=== PATIENT | male | born 1955 | race Hispanic/Latino ===

== ENCOUNTER 2018-01-20 07:28 | Observation (INO) | payer BC ==
[2018-01-20] MEDS ORDERED: Propofol 10 mg/ml Inj (20 ML) ONE (08:51)
[2018-01-20] MEDS ORDERED: Midazolam 2 MG/2 ML VIAL ONE (08:51)
--- NOTE | 2018-01-20 11:08 | CARD ---
APPROVED REPORT Date of service: 01/20/2018 EKG Measurement Heart [id number] <Conclusion> Atrial fibrillation LVH by voltage Q in lll
[2018-01-20] MEDS: Sodium Chloride 0.9% 1,000 ML IV SCH (12:05)
--- NOTE | 2018-01-20 12:38 | CP.PCM.HP ---
<Courtney Belcher - Last Filed: 01/21/18 12:08> History of Present Illness - History of Present Illness History of Present Illness: Amission history and physicl for Dr. Sol Gilbert CC: afib during EGD Patient is a 63 yr old male with PMH HTN, HLD, Chronic back pain, hypothyroidism, gout and diet controlled diabetes and esophageal cancer (2006) who presented to [facility] for routine screening EGD and was found to be in atrial fibrillation without RVR during the procedure. He converted back to normal sinus in PACU during recovery and was admitted for further observation. He admits to one similar episode 2 years ago for which he was evaluated but not placed on any anticoagulation. He otherwise denies MADRID, CP, SOB, dizziness, vision changes, f/c, n/v, abdominal pain and extremity pain or weakness. PMH:HTN, HLD, hypothyroidism, esophageal cancer (2006), gout, diet controlled DM PSH: lumbar disc fusion Social: former smoker 35 py, no ilicit drugs social ETOH Allergies: nkda MED: see med rec PMD: mutterpearl Onc: Veto at [facility] Present on Admission - Present on Admission Any Indicators Present on Admission: No Review of Systems - Review of Systems All systems: reviewed and no additional remarkable complaints except (as per HPI) Past Patient History - Tetanus Immunizations Tetanus Immunization: Unknown - Past Social History Smoking Status: Former Smoker - CARDIAC Hx Pacemaker: No - NEUROLOGICAL Hx Paralysis: No - HEMATOLOGICAL/ONCOLOGICAL Hx Blood Transfusions: No - INTEGUMENTARY Hx Dermatological Problems: No - MUSCULOSKELETAL/RHEUMATOLOGICAL Hx Musculoskeletal Disorders: Yes - GENITOURINARY/GYNECOLOGICAL Hx Genitourinary Disorders: No - PSYCHIATRIC Hx Emotional Abuse: No Hx Physical Abuse: No Hx Substance Use: No - SURGICAL HISTORY Hx Surgeries: Yes - ANESTHESIA Hx Anesthesia Reactions: No Hx Malignant Hyperthermia: No Meds Allergies/Adverse Reactions: Allergies Allergy/AdvReac Type Severity Reaction Status Date / Time No Known Allergies Allergy Verified 07/28/12 10:12 Physical Exam - Constitutional Appears: Well, Non-toxic, No Acute Distress - Head Exam Head Exam: ATRAUMATIC, NORMOCEPHALIC - Eye Exam Eye Exam: EOMI - ENT Exam ENT Exam: Mucous Membranes Moist - Respiratory Exam Respiratory Exam: NORMAL BREATHING PATTERN Additional comments: coarse breath sounds bilaterally - Cardiovascular Exam Cardiovascular Exam: REGULAR RHYTHM, RRR. absent: Bradycardia, Tachycardia, Irregular Rhythm - GI/Abdominal Exam GI & Abdominal Exam: Soft. absent: Distended, Firm, Guarding, Rebound, Rigid, Tenderness - Extremities Exam Extremities exam: Positive for: normal capillary refill, pedal pulses present. Negative for: calf tenderness, pedal edema, tenderness - Back Exam Back exam: absent: CVA tenderness (L), CVA tenderness (R) - Neurological Exam Neurological exam: Alert, Oriented x3 - Psychiatric Exam Psychiatric exam: Normal Affect, Normal Mood - Skin Skin Exam: Dry, Intact, Normal Color, Warm Results - Vital Signs Recent Vital Signs: Last Vital Signs Temp 98.2 F 01/20/18 10:40 Pulse 84 01/20/18 10:40 Resp 12 01/20/18 10:40 BP 161/84 H 01/20/18 10:40 Pulse Ox 98 01/20/18 10:40 - Labs Result Diagrams: 01/21/18 05:25 01/21/18 05:25 Assessment & Plan - Assessment and Plan (Free Text) Assessment: 63 yr old male with short run of atrial fibrillation during EGD who self converted to normal sinus rythym in PACU Plan: Atrial Fibrillation without RVR * cardiology consulted, recs appreciated * patient now in normal sinus on tele * denies ever having chest pains or SOB * repeat EKG ordered * stat troponins x 3 ordered * TSH and free T4 ordered * ASA 81 mg daily * urgent ECHO * repeat labs in AM Coarse breath sounds/hx of smoking: * Duonebs PRN * recent CXR normal HTN: * home amlodipine and losartan restarted, holding parameters in place * monitor vital signs HLD: * lipitor started at 40mg daily, reviewed with pharmacist for dose conversion from crestor Hypothyroidism: * continue home synthroid * TSH and T4 ordered Gout * home allopurinol and Vitamin C restarted Diet controlled DM * hbA1C 6.4 * will continue to monitor blood glucose levels Prophylaxis: SCDs, heparin and protonix Patient seen and discussed with attending Dr. Vladimir Belcher, PGY 1 - Date & Time Date: 01/20/18 Time: 11:15 <Sol Gilbert R - Last Filed: 01/21/18 16:14> Results - Vital Signs Recent Vital Signs: Last Vital Signs Temp 98.8 F 01/21/18 13:54 Pulse 77 01/21/18 14:00 Resp 18 01/21/18 13:54 BP 148/93 H 01/21/18 13:54 Pulse Ox 98 01/20/18 10:40 - Labs Result Diagrams: 01/21/18 05:25 01/21/18 05:25 Labs: Laboratory Results - last 24 hr 01/20/18 01/21/18 01/21/18 18:01 00:30 05:25 WBC 8.8 RBC 4.44 Hgb 13.2 L Hct 40.4 L MCV 91.0 MCH 29.7 MCHC 32.7 RDW 15.8 H Plt Count 234 MPV 11.9 H Gran % 75.8 H Lymph % (Auto) 16.6 L [place] % (Auto) 6.1 H Eos % (Auto) 1.3 L Baso % (Auto) 0.2 Gran # 6.67 H Lymph # (Auto) 1.5 [place] # (Auto) 0.5 Eos # (Auto) 0.1 Baso # (Auto) 0.02 Sodium Potassium Chloride Carbon Dioxide Anion Gap BUN Creatinine Est GFR ( Amer) Est GFR (Non-Af Amer) Random Glucose Calcium Phosphorus Magnesium Total Bilirubin AST ALT Alkaline Phosphatase Troponin I < 0.01 < 0.01 Total Protein Albumin Globulin Albumin/Globulin Ratio 01/21/18 05:25 WBC RBC Hgb Hct MCV MCH MCHC RDW Plt Count MPV Gran % Lymph % (Auto) [place] % (Auto) Eos % (Auto) Baso % (Auto) Gran # Lymph # (Auto) [place] # (Auto) Eos # (Auto) Baso # (Auto) Sodium 139 Potassium 4.2 Chloride 104 Carbon Dioxide 26 Anion Gap 13 BUN 22 H Creatinine 1.4 Est GFR ( Amer) > 60 Est GFR (Non-Af Amer) 51 Random Glucose 116 H Calcium 9.8 Phosphorus 3.2 Magnesium 1.7 Total Bilirubin 0.8 AST 29 ALT 16 Alkaline Phosphatase 93 Troponin I Total Protein 8.3 Albumin 4.6 Globulin 3.8 Albumin/Globulin Ratio 1.2 Attending/Attestation - Attestation I have personally seen and examined this patient.: Yes I have fully participated in the care of the patient.: Yes I have reviewed all pertinent clinical information: Yes Notes (Text): Patient seen and examined by me with resident at 12PM 01/20/18 with resident. Case including HPI, physical exam, and assessment and plan discussed with resident. Agree with above with following additions/corrections. Patient is 63-year-old male past medical history significant for hypertension, hyperlipidemia, chronic back pain, hypothyroidism, gout, and GERD that presented to [facility] for routine outpatient EGD and was found to have atrial fibrillation during the procedure. Patient converted back to normal sinus rhythm while in the PACU. Patient states that this happened approximately 2 years ago and he also converted back to normal sinus rhythm pretty quickly back then. Patient has not seen a access services assistant in the past. Patient denies any chest pain or palpitations. No associated shortness of breath. Patient denies any throat pain or difficulty swallowing. No nausea, vomiting, or abdominal pain. No headaches or dizziness. No fevers or chills. Patient has chronic back pain denies any pain currently. No dysuria. No diarrhea or constipation. 12 point review of systems reviewed by me. Please see above HPI, all other systems are negative. Family History: Mom of dementia. Father of lung cancer Physical exam: General: Awake and alert lying in bed in no acute distress HEENT: Normocephalic atraumatic. Extra ocular muscles intact. Pupils equal and reactive. No scleral icterus. Oropharynx is pink and moist. No pharyngeal er ythema or exudate appreciated. Neck is supple. Ears and nose externally unremarkable. Cardiovascular: Normal rhythm. Normal S1, S2. No murmurs, rubs, or gallops appreciated Pulmonary: Normal respiratory effort. No rhonchi, rales, or wheezing appreciated. Gastrointestinal: Soft, nondistended. Nontender. Positive bowel sounds all 4 quadrants, no guarding. Musculoskeletal: Normal range of motion all extremities, no calf tenderness. No edema appreciated Central nervous system: AAOx3. CN2-12 grossly intact. 5/5 muscle strength all extremities Dermatologic: Skin warm and dry. Assessment and plan: Patient is 63-year-old male past medical history significant for hypertension, hyperlipidemia, chronic back pain, hypothyroidism, gout, and GERD that presented to [facility] for routine outpatient EGD and was found to have atrial fibrillation during the procedure. 1. New onset atrial fibrillation. Now in normal sinus rhythm. Patient spontaneously converted. Will start aspirin. Follow up 2-D echo. Follow-up serial troponins. Follow up EKG. Cardiology consulted, follow-up recomm endations. Follow-up TSH and free T4. Monitor on telemetry. 2. Hypertension. Continue home Cozaar and Norvasc. 3. Hyperlipidemia. Patient takes Crestor 10 mg at home. Patient placed on Lipitor here. Crestor not on formulary. 4. Type 2 diabetes. Patient does not take any medications at home for this. This is diet-controlled per patient. HgbA1C 6.4. 5. Hypothyroidism. Continue home levothyroxine. Follow-up TSH and free T4. 6. History of gout. Continue home allopurinol. 7. History of tobacco abuse. Probably has underlying COPD. No current shortness of breath. Placed on nebulizer treatments as needed. Patient should follow up outpatient with early childhood director for PFT testing. 8. GI/DVT prophylaxis. Protonix/SCDs 9. Patient is a full code Case was discussed in detail with the patient and patient's at bedside with patient's permission. All questions answered.
[2018-01-20 12:57] LABS: BASO # 0.02 K/mm3 (0.0-2.0); BASO % 0.2 % (0.0-3.0); EOS # 0.1 (0.0-0.7); EOS % 0.5 % (1.5-5.0); GRAN # 7.95 (1.4-6.5); GRAN % 81.9 % (50.0-68.0); HEMOGLOBIN 12.7 g/dL (14.0-18.0); LYMPH # 1.2 (1.2-3.4); LYMPH % 12.1 % (22.0-35.0); MEAN CELL VOLUME 91.2 fl (80.0-105.0); MEAN CORPUSCULAR HEMOGLOBIN 30.2 pg (25.0-35.0); MEAN CORPUSCULAR HGB CONC 33.2 g/dl (31.0-37.0); MEAN PLATELET VOLUME 11.2 fl (7.0-11.0); MONO # 0.5 (0.1-0.6); MONO % 5.3 % (1.0-6.0); RBC 4.2 10^6/uL (3.5-6.1); RED CELL DISTRIBUTION WIDTH 15.7 % (11.5-14.5); WHITE BLOOD COUNT 9.7 10^3/ul (4.5-11.0)
[2018-01-20 13:07] LABS: ALB/GLOB RATIO 1.3 (1.1-1.8); ALBUMIN 4.6 g/dL (3.0-4.8); CALCIUM 9.3 mg/dL (8.4-10.5)
[2018-01-20 13:24] LABS: FREE T4 1.16 ng/dL (0.78-2.19)
[2018-01-20 14:46] VITALS: BMI 33.8
[2018-01-20] MEDS ORDERED: Influenza Vaccine 60 mcg/0.5 mL SYR (4YR UP) IM ONE (14:46)
[2018-01-20] MEDS ORDERED: Pneumococcal 23-Valent Vaccine IM ONE (14:46)
[2018-01-20] MEDS: Albuterol-Ipratrop 3 mg / 0.5 (3 ml) UD IH SCH (19:27)
[2018-01-21] MEDS: Albuterol-Ipratrop 3 mg / 0.5 (3 ml) UD IH SCH ×4 (01:41→20:05)
[2018-01-21] MEDS: Sodium Chloride 0.9% 1,000 ML IV SCH (05:54)
[2018-01-21] MEDS: Levothyroxine 88 MCG TAB PO SCH (06:27)
[2018-01-21] MEDS: Pantoprazole 40 mg EC Tab PO SCH (06:28)
[2018-01-21 06:53] LABS: BASO # 0.02 K/mm3 (0.0-2.0); BASO % 0.2 % (0.0-3.0); EOS # 0.1 (0.0-0.7); EOS % 1.3 % (1.5-5.0); GRAN # 6.67 (1.4-6.5); GRAN % 75.8 % (50.0-68.0); HEMOGLOBIN 13.2 g/dL (14.0-18.0); LYMPH # 1.5 (1.2-3.4); LYMPH % 16.6 % (22.0-35.0); MEAN CORPUSCULAR HEMOGLOBIN 29.7 pg (25.0-35.0); MEAN CORPUSCULAR HGB CONC 32.7 g/dl (31.0-37.0); MEAN PLATELET VOLUME 11.9 fl (7.0-11.0); MONO # 0.5 (0.1-0.6); MONO % 6.1 % (1.0-6.0); RBC 4.44 10^6/uL (3.5-6.1); RED CELL DISTRIBUTION WIDTH 15.8 % (11.5-14.5); WHITE BLOOD COUNT 8.8 10^3/uL (4.5-11.0)
[2018-01-21 07:31] LABS: ALB/GLOB RATIO 1.2 (1.1-1.8); ALBUMIN 4.6 g/dL (3.0-4.8); ALT/SGPT 16 U/L (7-56); AST/SGOT 29 U/L (17-59); BLOOD UREA NITROGEN 22 mg/dL (7-21); CALCIUM 9.8 mg/dL (8.4-10.5); GFR NON-AFRICAN AMERICAN 51
--- NOTE | 2018-01-21 09:17 | CP.PCM.PN ---
<Teodoro Tellez - Last Filed: 01/21/18 15:07> Subjective - Date & Time of Evaluation Date of Evaluation: 01/21/18 Time of Evaluation: 08:00 - Subjective Subjective: Teodoro Tellez DO, PGY-1 Hospitalist Progress Note for Dr. Viviane Gilbert Patient was seen and examined at bedside this AM. He reports feeling well and denies ever having palpitations during the afib episodes. He states he was having f/u EGD given his hx of esophageal CA. Overnight, it was reported by RN that he had a few AFib episodes but he states he did not feel them. He denies fever/chills, CP, SOB, light-headedness, MADRID, or peripheral numbness/tingling. Objective - Vital Signs/Intake and Output Vital Signs (last 24 hours): Temp Pulse Resp BP Pulse Ox 98.7 F 73 20 160/99 H 98 01/20/18 17:40 01/21/18 06:00 01/20/18 17:40 01/20/18 19:00 01/20/18 10:40 Intake and Output: 01/21/18 01/21/18 06:59 18:59 Intake Total 240 Output Total 725 Balance -485 - Medications Medications: Current Medications Albuterol/Ipratropium (Duoneb 3 Mg/0.5 Mg (3 Ml) Ud) 3 ml IH [id number] [facility] Last Admin: 01/21/18 08:39 Dose: 3 ml Allopurinol (Zyloprim) 100 mg PO DAILY [facility] Last Admin: 01/20/18 12:39 Dose: 100 mg Amlodipine Besylate (Norvasc) 10 mg PO DAILY [facility] Ascorbic Acid (Vitamin C 500 Mg Tab) 2,000 mg PO DAILY [facility] Last Admin: 01/20/18 12:39 Dose: 2,000 mg Aspirin (Aspirin Chewable) 81 mg PO DAILY [facility] Last Admin: 01/20/18 12:39 Dose: 81 mg Atorvastatin Calcium (Lipitor) 40 mg PO DIN [facility] Last Admin: 01/20/18 17:08 Dose: 40 mg Heparin Sodium (Porcine) (Heparin) 5,000 units SC Q8 [facility]; Protocol Last Admin: 01/21/18 06:27 Dose: 5,000 units Sodium Chloride (Sodium Chloride 0.9%) 1,000 mls @ 100 mls/hr IV .Q10H [facility] Last Admin: 01/21/18 05:54 Dose: Not Given Levothyroxine Sodium (Synthroid) 88 mcg PO 0600 [facility] Last Admin: 01/21/18 06:27 Dose: 88 mcg Losartan Potassium (Cozaar) 100 mg PO DAILY [facility] Pantoprazole Sodium (Protonix Ec Tab) 40 mg PO 0600 [facility] Last Admin: 01/21/18 06:28 Dose: 40 mg Zolpidem Tartrate (Ambien) 5 mg PO HS PRN; Protocol PRN Reason: Insomnia Last Admin: 01/21/18 00:59 Dose: 5 mg - Labs Labs: 01/21/18 05:25 01/21/18 05:25 Assessment and Plan - Assessment and Plan (Free Text) Assessment: 63 yo M with esophageal CA (s/p treatment), gout, DM2 (diet controlled), hypothyroidism, HTN, and HLD was admitted per Dr. De La Torre after f/u EGD for episodes of AFib during EGD. He has been monitored on tele and had additional episodes of Afib last night. Plan: 1. AFib without RVR First noted on EGD and subsequently admitted for monitoring Likely 2/2 paroxysmal AFib TSH, T4 WNL, troponin negative x 3 Eliquis and Lopressor started per cardiology recs Per cardiology, would like to monitor for an additional 24 hours prior to discharge Cardiology following, recs appreciated 2. Gout Patient states allopurinol normally prevents his attacks Continue allopurinol 3. Type 2 Diabetes Mellitus A1c this visit 6.4 Patient states he would rather continue dietary rather than medical management Recommend close outpatient f/u 4. Hx of hypothyroidism TSH, T4 WNL Continue synthroid 5. Hx HTN Continue home cozaar 6. Hx HLD Continue home crestor 7. Hx esophageal CA Pt states is in remission Was receiving EGD for f/u per Dr. De La Torre Follows with Dr. De La Torre outpatient DVT/GI PPX: eliquis, SCD, protonix Full Code HHD Monitor on telemetry Case and plan reviewed and discussed with my attending Dr. Viviane Tellez, DO IM Resident PGY-1 Pager: [phone] <Sol Gilbert R - Last Filed: 01/23/18 11:16> Objective - Vital Signs/Intake and Output Vital Signs (last 24 hours): Temp Pulse Resp BP Pulse Ox 98.9 F 48 L 20 130/80 96 01/22/18 06:00 01/22/18 06:00 01/22/18 06:00 01/22/18 10:19 01/22/18 06:00 - Labs Labs: 01/22/18 05:30 01/22/18 05:30 Attending/Attestation - Attestation I have personally seen and examined this patient.: Yes I have fully participated in the care of the patient.: Yes I have reviewed all pertinent clinical information, including history, physical exam and plan: Yes Notes (Text): Patient seen and examined by me with resident at 12:35PM 01/21/18 with resident. Case including HPI, physical exam, and assessment and plan discussed with resident. Agree with above with following additions/corrections. Patient is 63-year-old male past medical history significant for hypertension, hyperlipidemia, chronic back pain, hypothyroidism, gout, and GERD that presented to [facility] for routine outpatient EGD and was found to have atrial fibrillation during the procedure. Patient states he is feeling pretty good. He denies having any chest palpitations or chest pain. No shortness of breath. Patient is asking to go home. Discussed with patient that he is still having arrhythmia. Patient understands. Patient denies any nausea, vomiting, or abdominal pain. No headaches or dizziness. No fevers or chills. No dysuria or difficulty urinating. No diarrhea or constipation. Physical exam: General: Awake and alert lying in bed in no acute distress HEENT: Normocephalic atraumatic. Extra ocular muscles intact. Pupils equal and reactive. No scleral icterus. Oropharynx is pink and moist. No pharyngeal erythema or exudate appreciated. Neck is supple. Cardiovascular: Irregular rhythm. S1, S2. No murmurs, rubs, or gallops appreciated Pulmonary: Normal respiratory effort. No rhonchi, rales, or wheezing appreciated. Gastrointestinal: Soft, nondistended. Nontender. Positive bowel sounds all 4 quadrants, no guarding. Musculoskeletal: Normal range of motion all extremities, no calf tenderness. No edema appreciated Central nervous system: AAOx3. CN2-12 grossly intact. 5/5 muscle strength all extremities Dermatologic: Skin warm and dry. Assessment and plan: Patient is 63-year-old male past medical history significant for hypertension, hyperlipidemia, chronic back pain, hypothyroidism, gout, and GERD that presented to [facility] for routine outpatient EGD and was found to have atrial fibrillation during the procedure. 1. New onset atrial fibrillation/atrial flutter. Paroxysmal. Pending 2-D echo read. Troponins within normal limits. TSH and free T4 within normal limits. Patient started on metoprolol. Cardiology following, recommendations appreciated. Patient was started on Eliquis. Risks of taking Eliquis including increased bleeding risk discussed at length with patient. Patient agrees to take Eliquis. Continue to monitor on telemetry. 2. Hypertension. Continue Cozaar and Norvasc. Started on Metoprolol. 3. Hyperlipidemia. Patient takes Crestor 10 mg at home. Continue on Lipitor here. Crestor not on formulary. 4. Type 2 diabetes. Patient does not take any medications at home for this. This is diet-controlled per patient. HgbA1C 6.4. 5. Hypothyroidism. Continue home levothyroxine. TSH and Free T4 within normal limits. 6. History of gout. Continue home allopurinol. 7. History of tobacco abuse. Probably has underlying COPD. No current shortness of breath. Continue nebulizer treatments as needed. Patient should follow up outpatient with office chair assembler for PFT testing. 8. History of esophageal cancer. Patient s/p EGD. Patient to continue to follow up with Dr. De La Torre. 9. GI/DVT prophylaxis. Protonix/SCDs 10. Patient is a full code Case was discussed in detail with the patient and patient's at bedside with patient's permission. All questions answered.
--- NOTE | 2018-01-21 10:45 | CARD ---
APPROVED REPORT Date of service: 01/20/2018 EKG Measurement Heart [id number] <Conclusion> Normal sinus rhythm with blocked APC Q in lll No AF now.
--- NOTE | 2018-01-21 13:38 | CON ---
DATE: 01/21/2018 INDICATION: Paroxysmal atrial fibrillation. HISTORY OF PRESENT ILLNESS: This is a 63-year-old man who underwent an elective EGD yesterday with a history of esophageal cancer. Following the procedure, he was found to have atrial fibrillation with a ventricular rate of about 67 beats per minute. This reverted to sinus rhythm. He was admitted to telemetry for observation, he remains in sinus rhythm. He has no symptoms at this time. The EGD was otherwise uneventful. There was no chest pain, shortness of breath, orthopnea, PND, syncope, presyncope, palpitations, edema, claudication, fever, chills, cough, sputum production, hemoptysis, abdominal pain, nausea, vomiting, diarrhea, constipation or melena. PAST MEDICAL HISTORY: Notable for possible episode of atrial fibrillation in the past, hypertension, hyperlipidemia, hypothyroidism, gout, lumbar surgery, diet-controlled diabetes. There is no history of rheumatic fever, myocardial infarction, congestive heart failure, stroke, TIA. MEDICATIONS: At the time of admission include losartan, Crestor, morphine sulfate, Norvasc, Prilosec, Synthroid, allopurinol, vitamin C, temazepam. ALLERGIES: THERE ARE NO MEDICATION ALLERGIES REPORTED. SOCIAL HISTORY: He is a former smoker. He does not drink alcohol significantly. He lives at home. He is ambulatory. REVIEW OF SYSTEMS: A 10-point review of systems otherwise unremarkable except as noted above. FAMILY HISTORY: Noncontributory. PHYSICAL EXAMINATION: GENERAL: He is a well-developed male sitting on his bed in telemetry, in no acute distress. VITAL SIGNS: Notable for sinus rhythm, 73-94 beats per minute. He is afebrile, blood pressure 160/99, respirations 20, O2 sat not recorded. HEENT AND NECK: Reveals no neck vein distention, thyromegaly, carotid bruits. Mucous membranes moist. Conjunctivae pink. Neck is supple. LUNGS: Lung tan clear throughout. HEART: Examination of the heart revealed normal first and second heart sounds. PMI not palpable. ABDOMEN: Soft. Bowel sounds are present. No mass, organomegaly, tenderness, rebound, guarding, CVA tenderness or palpable abdominal aortic aneurysm. EXTREMITIES: Exam revealed no cyanosis, clubbing or edema. NEUROLOGICAL: He is awake, alert and oriented. SKIN: Warm and dry. No rash or cellulitis. PSYCHIATRIC: Normal as to mood and affect. LABORATORY AND IMAGING STUDIES: EKG yesterday demonstrated atrial fibrillation, a repeat EKG few hours later revealed sinus rhythm with nonspecific ST wave changes. White count is normal, platelet count is normal, hemoglobin 13.2, hematocrit 40.4. Electrolytes unremarkable. BUN 22, creatinine 1.4. Hemoglobin A1c is 6.4. Magnesium is normal. LFTs are normal. Two troponins are negative. T4 1.16 which is normal. TSH is normal. IMPRESSION: Andrea Carias is a 63-year-old man with a remote history of esophageal cancer, treated with radiation therapy and underwent an elective esophagogastroduodenoscopy yesterday and was found to have paroxysmal atrial fibrillation following the procedure, which lasted for a short period and reverted to sinus rhythm. He has remained in sinus rhythm while on telemetry. I would add metoprolol 25 mg b.i.d. and he should be considered for anticoagulation given a CHADS score of 2. I will start Eliquis 5 mg b.i.d. discontinue subcutaneous heparin. Other medications include Cozaar, albuterol, Lipitor, Norvasc, Protonix, Synthroid, vitamin C, Zyloprim. He can be out of bed. We will get an echocardiogram. He should be considered for nuclear stress testing which can be on an outpatient basis. The results of his EGD are pending. He is followed for esophageal cancer by Dr. Laws in [facility]. I will follow along with you, make additional recommendations based on his clinical course. Max Almanza MD [facility]
[2018-01-22] MEDS: Albuterol-Ipratrop 3 mg / 0.5 (3 ml) UD IH SCH ×2 (01:24→07:29)
[2018-01-22 04:14] VITALS: RESP 20
[2018-01-22] MEDS: Pantoprazole 40 mg EC Tab PO SCH (05:58)
[2018-01-22] MEDS: Levothyroxine 88 MCG TAB PO SCH (05:58)
[2018-01-22 06:32] VITALS: PULSE 48; TEMP 98.9; O2SAT 96
[2018-01-22 07:04] LABS: BASO # 0.02 K/mm3 (0.0-2.0); BASO % 0.2 % (0.0-3.0); EOS # 0.1 (0.0-0.7); EOS % 1.1 % (1.5-5.0); GRAN # 8.2 (1.4-6.5); GRAN % 71.9 % (50.0-68.0); HEMOGLOBIN 14.1 g/dL (14.0-18.0); LYMPH # 2.2 (1.2-3.4); LYMPH % 19.3 % (22.0-35.0); MEAN CELL VOLUME 90.4 fl (80.0-105.0); MEAN CORPUSCULAR HEMOGLOBIN 30.1 pg (25.0-35.0); MEAN CORPUSCULAR HGB CONC 33.3 g/dl (31.0-37.0); MEAN PLATELET VOLUME 11.9 fl (7.0-11.0); MONO # 0.9 (0.1-0.6); MONO % 7.5 % (1.0-6.0); RBC 4.68 10^6/uL (3.5-6.1); RED CELL DISTRIBUTION WIDTH 15.6 % (11.5-14.5); WHITE BLOOD COUNT 11.4 10^3/uL (4.5-11.0)
[2018-01-22 07:34] LABS: ALB/GLOB RATIO 1.2 (1.1-1.8); ALBUMIN 4.8 g/dL (3.0-4.8); CALCIUM 9.8 mg/dL (8.4-10.5)
--- NOTE | 2018-01-22 08:16 | CP.PCM.PN ---
Subjective - Date & Time of Evaluation Date of Evaluation: 01/22/18 Time of Evaluation: 07:00 - Subjective Subjective: Stable on 2R. No CP or SOB. V/S noted. A. Fib/flutter with mod VR PE: Lungs: clear Cor.: irreg. S1S2 Abd.: soft Ext.: no edema Neuro.: alert I/O= 1220/900 recorded Labs noted: Cr. 1.8 Echo: Nl LV, see full report Objective - Vital Signs/Intake and Output Vital Signs (last 24 hours): Temp Pulse Resp BP Pulse Ox 98.9 F 48 L 20 126/80 96 01/22/18 06:00 01/22/18 06:00 01/22/18 06:00 01/22/18 06:00 01/22/18 06:00 Intake and Output: 01/22/18 01/22/18 06:59 18:59 Intake Total 560 Output Total 0 Balance 560 - Medications Medications: Current Medications Albuterol/Ipratropium (Duoneb 3 Mg/0.5 Mg (3 Ml) Ud) 3 ml IH [id number] [facility] Last Admin: 01/22/18 07:29 Dose: 3 ml Allopurinol (Zyloprim) 100 mg PO DAILY [facility] Last Admin: 01/21/18 09:59 Dose: 100 mg Amlodipine Besylate (Norvasc) 10 mg PO DAILY [facility] Last Admin: 01/21/18 10:08 Dose: 10 mg Apixaban (Eliquis) 5 mg PO BID [facility]; Protocol Last Admin: 01/21/18 18:07 Dose: 5 mg Ascorbic Acid (Vitamin C 500 Mg Tab) 2,000 mg PO DAILY [facility] Last Admin: 01/21/18 09:59 Dose: 2,000 mg Aspirin (Aspirin Chewable) 81 mg PO DAILY [facility] Last Admin: 01/21/18 10:09 Dose: 81 mg Atorvastatin Calcium (Lipitor) 40 mg PO DIN [facility] Last Admin: 01/21/18 18:07 Dose: 40 mg Levothyroxine Sodium (Synthroid) 88 mcg PO 0600 [facility] Last Admin: 01/22/18 05:58 Dose: 88 mcg Losartan Potassium (Cozaar) 100 mg PO DAILY [facility] Last Admin: 01/21/18 09:59 Dose: 100 mg Metoprolol Tartrate (Lopressor) 25 mg PO BID [facility] Last Admin: 01/21/18 18:07 Dose: 25 mg Pantoprazole Sodium (Protonix Ec Tab) 40 mg PO 0600 [facility] Last Admin: 01/22/18 05:58 Dose: 40 mg Zolpidem Tartrate (Ambien) 5 mg PO HS PRN; Protocol PRN Reason: Insomnia Last Admin: 01/22/18 01:05 Dose: 5 mg - Labs Labs: 01/22/18 05:30 01/22/18 05:30 Assessment and Plan - Assessment and Plan (Free Text) Assessment: PAF following EGD H/O remote Esophageal cancer, s/p XRT Acute renal insufficiency Diabetes HBP HLD Hypothyroidism Gout Lumbar surgery Former Smoker Plan: Continue metoprolol, Eliquis Hold losartan Renal Evaluation OOB Monitor: labs, I/O, tel., sats., etc Await EGD findings.
[2018-01-22] MEDS ORDERED: Sodium Chloride 0.9% 1,000 ML IV SCH (09:15)
--- NOTE | 2018-01-22 09:59 | CARD ---
APPROVED REPORT Date of service: 01/21/2018 EXAM: Two-dimensional and M-mode echocardiogram with Doppler and color Doppler. Other Information Quality : AverageRhythm : INDICATION Atrial Fibrillation 2D DIMENSIONS Left Atrium (2D)3.3 (1.6-4.0cm)IVSd0.9 (0.7-1.1cm) LVDd4.4 (3.9-5.9cm)PWd0.9 (0.7-1.1cm) LVDs2.9 (2.5-4.0cm)FS (%) 33.3 % LVEF (%)62.0 (>50%) M-Mode DIMENSIONS Aortic Root2.40 (2.2-3.7cm)Aortic Cusp Exc.1.40 (1.5-2.0cm) Aortic Valve AoV Peak Adyigrgr517.0cm/s Mitral Valve MV E Umlhduwy29.2cm/sMV A Prmzyejb24.6cm/sE/A ratio0.7 TDI E/Lateral E'0.0E/Medial E'0.0 LEFT VENTRICLE The left ventricle is normal size. There is normal left ventricular wall thickness. The left ventricular function is normal. The left ventricular ejection fraction is within the normal range. There is normal LV segmental wall motion. RIGHT VENTRICLE The right ventricle is normal size. ATRIA The left atrium size is normal. The interatrial septum is intact with no evidence for an atrial septal defect. AORTIC VALVE The aortic valve is mildly calcified. MITRAL VALVE The mitral valve is normal in structure. Mitral regurgitation is trace. TRICUSPID VALVE The tricuspid valve is not well visualized. PULMONIC VALVE The pulmonic valve is not well visualized. GREAT VESSELS The aortic root is normal in size. PERICARDIAL EFFUSION There is no pericardial effusion. <Conclusion> The left ventricle is normal size. There is normal left ventricular wall thickness. The left ventricular function is normal.
[2018-01-22 10:23] VITALS: BP 130/80
--- NOTE | 2018-01-22 10:56 | CARD ---
APPROVED REPORT Date of service: 01/22/2018 EKG Measurement Heart [id number] <Conclusion> Sinus rhythm with premature atrial complexes Possible Left atrial enlargement Nonspecific ST abnormality Q in lll
--- NOTE | 2018-01-22 17:30 | CP.PCM.DIS ---
<Teodoro Tellez - Last Filed: 01/22/18 17:34> Provider - Provider Date of Admission: 01/22/18 06:37 Attending physician: Sol Gilbert DO Primary care physician: Darlyn Consults: Cardio: Archie, GI: Britt Time Spent in preparation of Discharge (in minutes): 35 Diagnosis - Discharge Diagnosis (1) Paroxysmal A-fib Status: Acute (2) New onset a-fib Status: Acute (3) History of esophageal cancer Status: Chronic (4) Gout Status: Chronic (5) History of hypothyroidism Status: Chronic (6) Diabetes Status: Chronic Hospital Course - Lab Results Lab Results: Most Recent Lab Values WBC 11.4 10^3/uL (4.5-11.0) H D 01/22/18 05:30 RBC 4.68 10^6/uL (3.5-6.1) 01/22/18 05:30 Hgb 14.1 g/dL (14.0-18.0) 01/22/18 05:30 Hct 42.3 % (42.0-52.0) 01/22/18 05:30 MCV 90.4 fl (80.0-105.0) 01/22/18 05:30 MCH 30.1 pg (25.0-35.0) 01/22/18 05:30 MCHC 33.3 g/dl (31.0-37.0) 01/22/18 05:30 RDW 15.6 % (11.5-14.5) H 01/22/18 05:30 Plt Count 275 10^3/uL (120.0-450.0) 01/22/18 05:30 MPV 11.9 fl (7.0-11.0) H 01/22/18 05:30 Gran % 71.9 % (50.0-68.0) H 01/22/18 05:30 Lymph % (Auto) 19.3 % (22.0-35.0) L 01/22/18 05:30 Todd % (Auto) 7.5 % (1.0-6.0) H 01/22/18 05:30 Eos % (Auto) 1.1 % (1.5-5.0) L 01/22/18 05:30 Baso % (Auto) 0.2 % (0.0-3.0) 01/22/18 05:30 Gran # 8.20 (1.4-6.5) H 01/22/18 05:30 Lymph # (Auto) 2.2 (1.2-3.4) 01/22/18 05:30 Todd # (Auto) 0.9 (0.1-0.6) H 01/22/18 05:30 Eos # (Auto) 0.1 (0.0-0.7) 01/22/18 05:30 Baso # (Auto) 0.02 K/mm3 (0.0-2.0) 01/22/18 05:30 Sodium 138 mmol/L (132-148) 01/22/18 05:30 Potassium 4.2 mmol/L (3.6-5.0) 01/22/18 05:30 Chloride 102 mmol/L (98-107) 01/22/18 05:30 Carbon Dioxide 23 mmol/L (21-33) 01/22/18 05:30 Anion Gap 17 (10-20) 01/22/18 05:30 BUN 31 mg/dL (7-21) H 01/22/18 05:30 Creatinine 1.8 mg/dl (0.8-1.5) H 01/22/18 05:30 Est GFR ( Amer) 46 01/22/18 05:30 Est GFR (Non-Af Amer) 38 01/22/18 05:30 Random Glucose 115 mg/dL (70-110) H 01/22/18 05:30 Hemoglobin A1c 6.4 % (4.2-6.5) 01/20/18 12:50 Calcium 9.8 mg/dL (8.4-10.5) 01/22/18 05:30 Phosphorus 2.8 mg/dL (2.5-4.5) 01/22/18 05:30 Magnesium 1.9 mg/dL (1.7-2.2) 01/22/18 05:30 Total Bilirubin 0.9 mg/dL (0.2-1.3) 01/22/18 05:30 AST 26 U/L (17-59) 01/22/18 05:30 ALT 17 U/L (7-56) 01/22/18 05:30 Alkaline Phosphatase 88 U/L (38-126) 01/22/18 05:30 Troponin I < 0.01 ng/mL 01/21/18 00:30 Total Protein 8.8 g/dL (5.8-8.3) H 01/22/18 05:30 Albumin 4.8 g/dL (3.0-4.8) 01/22/18 05:30 Globulin 4.0 gm/dL 01/22/18 05:30 Albumin/Globulin Ratio 1.2 (1.1-1.8) 01/22/18 05:30 Free T4 1.16 ng/dL (0.78-2.19) 01/20/18 12:50 TSH 3rd Generation 3.90 mIU/mL (0.46-4.68) 01/20/18 12:50 - Hospital Course Hospital Course: Teodoro Tellez DO, PGY-1 Hospitalist Discharge Summary for Dr. Viviane Gilbert Mr. Carias is a 63 year old male with PMH of esophageal CA (s/p treatment), gout, DM2 (diet controlled), hypothyroidism, HTN, and HLD was admitted per Dr. De La Torre after f/u EGD for episodes of AFib without RVR during EGD. He was asymptomatic on admission and denied ever feeling palpitations, CP, SOB, or syncope. While in the hospital, Mr. Carias continued to have periodic episodes of Afib without RVR on telemetry. He was subsequently seen by cardiology who recommended continued monitoring in the hospital while being placed on eliquis and lopressor. He was reluctant to stay in the hospital for an additional night at first and almost signed out AMA. He was able to get his son to watch over his for the night and decided to stay. For the last 24 hours after starting eliquis and lopressor, he had no further episodes of Afib. It was noted this AM however that his BUN/Cr were beginning to rise. For this reason, he was not cleared to leave. After informing the patient that it was advised that he continue to stay, he decided to leave AMA. He states he will see his PMD on Wednesday to further discuss the elevated BUN/Cr. He states that he had seen Dr. Lechuga about this issue previously. He was given one week prescriptions for eliquis and lopressor. He was advised to stop taking cozaar as patient's BUN/Cr were rising and lopressor was being started. Patient verbalized understanding of instructions and wrote them down. He was informed of the risks of leaving and signed AMA form prior to leaving. Discharge Exam - Head Exam Head Exam: ATRAUMATIC, NORMOCEPHALIC - Eye Exam Eye Exam: EOMI, Normal appearance, PERRL - ENT Exam ENT Exam: Mucous Membranes Moist - Neck Exam Neck exam: Full Rom, Normal Inspection - Respiratory Exam Respiratory Exam: Clear to PA & Lateral, NORMAL BREATHING PATTERN. absent: Rales, Rhonchi, Wheezes - Cardiovascular Exam Cardiovascular Exam: REGULAR RHYTHM, RRR, +S1, +S2. absent: Diastolic murmur, Gallop, Rubs, Systolic Murmur - GI/Abdominal Exam GI & Abdominal Exam: Normal Bowel Sounds, Soft. absent: Distended, Guarding - Extremities Exam Extremities exam: normal inspection - Back Exam Back exam: NORMAL INSPECTION - Neurological Exam Neurological exam: Alert, Oriented x3 - Psychiatric Exam Psychiatric exam: Normal Affect, Normal Mood - Skin Skin Exam: Dry, Intact, Warm Discharge Plan - Discharge Medications Prescriptions: Apixaban [Eliquis] 5 mg PO BID 7 Days #14 tablet RX: Apixaban [Eliquis] 5 mg PO BID 14 Days #28 tab RX: Metoprolol Tartrate 25 mg PO BID 7 Days #14 tablet RX: Metoprolol Tartrate [Lopressor] 25 mg PO BID 7 Days #14 tab - Follow Up Plan Condition: GOOD Disposition: AGAINST MEDICAL ADVICE Additional Instructions: Per Dr De La Torre, No aspirin, ibuprofen, naproxen or other NSAID for 2 weeks after biopsy (EGD 01/20/18). Return to Dr De La Torre office in 4 weeks. Continue Eliquis to prevent stroke from irregular heart rate. Follow up with Dr Almanza within 1 week Referrals: Max Almanza MD [Staff Provider] - Jose Miguel De La Torre MD [Staff Provider] - Yeison Santizo MD [Family Provider] - <oSl Gilbert - Last Filed: 01/24/18 17:24> Provider - Provider Date of Admission: 01/20/18 11:24 Attending physician: Sol Gilbert DO Hospital Course - Lab Results Lab Results: Most Recent Lab Values WBC 11.4 10^3/uL (4.5-11.0) H D 01/22/18 05:30 RBC 4.68 10^6/uL (3.5-6.1) 01/22/18 05:30 Hgb 14.1 g/dL (14.0-18.0) 01/22/18 05:30 Hct 42.3 % (42.0-52.0) 01/22/18 05:30 MCV 90.4 fl (80.0-105.0) 01/22/18 05:30 MCH 30.1 pg (25.0-35.0) 01/22/18 05:30 MCHC 33.3 g/dl (31.0-37.0) 01/22/18 05:30 RDW 15.6 % (11.5-14.5) H 01/22/18 05:30 Plt Count 275 10^3/uL (120.0-450.0) 01/22/18 05:30 MPV 11.9 fl (7.0-11.0) H 01/22/18 05:30 Gran % 71.9 % (50.0-68.0) H 01/22/18 05:30 Lymph % (Auto) 19.3 % (22.0-35.0) L 01/22/18 05:30 Todd % (Auto) 7.5 % (1.0-6.0) H 01/22/18 05:30 Eos % (Auto) 1.1 % (1.5-5.0) L 01/22/18 05:30 Baso % (Auto) 0.2 % (0.0-3.0) 01/22/18 05:30 Gran # 8.20 (1.4-6.5) H 01/22/18 05:30 Lymph # (Auto) 2.2 (1.2-3.4) 01/22/18 05:30 Todd # (Auto) 0.9 (0.1-0.6) H 01/22/18 05:30 Eos # (Auto) 0.1 (0.0-0.7) 01/22/18 05:30 Baso # (Auto) 0.02 K/mm3 (0.0-2.0) 01/22/18 05:30 Sodium 138 mmol/L (132-148) 01/22/18 05:30 Potassium 4.2 mmol/L (3.6-5.0) 01/22/18 05:30 Chloride 102 mmol/L (98-107) 01/22/18 05:30 Carbon Dioxide 23 mmol/L (21-33) 01/22/18 05:30 Anion Gap 17 (10-20) 01/22/18 05:30 BUN 31 mg/dL (7-21) H 01/22/18 05:30 Creatinine 1.8 mg/dl (0.8-1.5) H 01/22/18 05:30 Est GFR ( Amer) 46 01/22/18 05:30 Est GFR (Non-Af Amer) 38 01/22/18 05:30 Random Glucose 115 mg/dL (70-110) H 01/22/18 05:30 Hemoglobin A1c 6.4 % (4.2-6.5) 01/20/18 12:50 Calcium 9.8 mg/dL (8.4-10.5) 01/22/18 05:30 Phosphorus 2.8 mg/dL (2.5-4.5) 01/22/18 05:30 Magnesium 1.9 mg/dL (1.7-2.2) 01/22/18 05:30 Total Bilirubin 0.9 mg/dL (0.2-1.3) 01/22/18 05:30 AST 26 U/L (17-59) 01/22/18 05:30 ALT 17 U/L (7-56) 01/22/18 05:30 Alkaline Phosphatase 88 U/L (38-126) 01/22/18 05:30 Troponin I < 0.01 ng/mL 01/21/18 00:30 Total Protein 8.8 g/dL (5.8-8.3) H 01/22/18 05:30 Albumin 4.8 g/dL (3.0-4.8) 01/22/18 05:30 Globulin 4.0 gm/dL 01/22/18 05:30 Albumin/Globulin Ratio 1.2 (1.1-1.8) 01/22/18 05:30 Free T4 1.16 ng/dL (0.78-2.19) 01/20/18 12:50 TSH 3rd Generation 3.90 mIU/mL (0.46-4.68) 01/20/18 12:50 Attending/Attestation - Attestation I have personally seen and examined this patient.: Yes I have fully participated in the care of the patient.: Yes I have reviewed all pertinent clinical information, including history, physical exam and plan: Yes Notes (Text): Patient seen and examined by me with resident at 9:20AM on 01/22/18 with resident. Case including discharge plan discussed with resident. Agree with above with following additions/corrections. Patient is 63-year-old male past medical history significant for hypertension, hyperlipidemia, chronic back pain, hypothyroidism, gout, and GERD that presented to [facility] for routine outpatient EGD and was found to have atrial fibrillation during the procedure. Please see H&P for full details. Patient was admitted with new onset atrial fibrillation/atrial flutter, hypertension, hyperlipidemia, DM2, hypothyroidisma, history of gout, history of tobacco abuse, and history of esophageal cancer. Cardiology was consulted. Troponins within normal limits. Patient was started on metoprolol and Eliquis by cardiology. TSH was within normal limits. 2D echo was done which per evidence technician showed left ventricle is normal size, normal left ventricular wall thickness, left ventricular function is normal. Patient was continued on Norvasc and Cozaar for hypertension. Patient was continued on Lipitor for hyperlipidemia. Patients HgbA1C was 6.4. Patient continued on allopurinol for history of gout. Patient was placed on nebulizer treatments as needed for history of tobacco abuse and likely underlying COPD. Patient was advised to follow up outpatient with a maintenance of way supervisor for PFT testing. Patient was s/p EGD for history of esophageal cancer. Patient to follow up with GI for biopsy resu lts. Patient was feeling much better. Patient denied any chest pain or shortness of breath. No headaches or dizziness. No fevers or chills. No nausea, vomiting, or abdominal pain. No palpitations. No lightheadedness. No dysuria. No diarrhea or constipation. Patient was advised that his creatinine was uptrending and needed further work up. Patient requested to sign out AMA. Patient requested to sign out against medical advice. This action is against my medical advice to the patient and the decision was made with informed refusal. The patient was told that further work up and treatment is necessary and a full explanation of my rationale was given. The risks for leaving were explained to the patient and include but are not limited to increased mortality and morbidity, , and worsening of known or unknown conditions. Patient was AAOx3 and was able to make this informed decision and understood the clinical situation and my explanation of the risks of leaving. The patient voluntarily a ccepted these risks and signed an AMA form. The patient was given the opportunity to ask questions and reconsider. The patient was encouraged to return to the emergency room at any time for further treatment. Patient given prescriptions for Eliquis and metoprolol Physical exam: General: Awake and alert lying in bed in no acute distress HEENT: Normocephalic atraumatic. Extra ocular muscles intact. Pupils equal and reactive. No scleral icterus. Oropharynx is pink and moist. No pharyngeal erythema or exudate appreciated. Neck is supple. Cardiovascular: Normal rhythm. Normal S1, S2. No murmurs, rubs, or gallops appreciated Pulmonary: Normal respiratory effort. No rhonchi, rales, or wheezing appreciated. Gastrointestinal: Soft, nondistended. Nontender. Positive bowel sounds all 4 quadrants, no guarding. Musculoskeletal: Normal range of motion all extremities, no calf tenderness. No edema appreciated Central nervous system: AAOx3. CN2-12 grossly intact. 5/5 muscle strength all extremities Dermatologic: Skin warm and dry. Please see chart for full details Time spent 45 mins
== END 2018-01-22 11:00 | disposition left against medical advice (07) ==
LOC: ENDO 07:28 → 2RNO 11:24 → INTOOBSV 01-22 06:37 → OBSVTOIN 01-22 06:37
PROVIDERS: ADMIT Internal Medicine; ATTEND Hospitalist
DX: I97.89 Other postprocedural complications and disorders of the circulatory system, not elsewhere classified (principal); I48.0 Paroxysmal atrial fibrillation; I48.92 Unspecified atrial flutter; K22.2 Esophageal obstruction; Y84.2 Radiological procedure and radiotherapy as the cause of abnormal reaction of the patient, or of later complication, without mention of misadventure at the time of the procedure; K29.50 Unspecified chronic gastritis without bleeding; K21.9 Gastro-esophageal reflux disease without esophagitis; E03.9 Hypothyroidism, unspecified; E11.9 Type 2 diabetes mellitus without complications; I10 Essential (primary) hypertension; J44.9 Chronic obstructive pulmonary disease, unspecified; E78.5 Hyperlipidemia, unspecified; M10.9 Gout, unspecified; M54.9 Dorsalgia, unspecified; G89.29 Other chronic pain; N28.9 Disorder of kidney and ureter, unspecified; Z85.01 Personal history of malignant neoplasm of esophagus; Z92.3 Personal history of irradiation; Z87.891 Personal history of nicotine dependence
CPT/HCPCS: 36415; 43239; 80053; 83036; 83735; 84100; 84439; 84443; 84484; 85025; 88305; 88312; 88342; 93005; 93306; 94640; 94760; 96372; G0378; J1644; J2001; J2250; J2704; J3010; J7030; J7040